=== PATIENT | male | born 1985 | race Caucasian/White ===

== ENCOUNTER 2025-06-28 02:25 | Emergency (ER) | payer MEDICAID, OTHER ==
[~2025-06-28] VITALS: Ht 175.3 cm; Wt 105.0 kg
[2025-06-28 02:28] VITALS: BP 106/90; PULSE 139; RESP 18; TEMP 98.3; O2SAT 94
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
[2025-06-28] MEDS: IBUPROFEN 600 MG TAB PO ONE (03:16)
[2025-06-28] MEDS: HYDROcodone-ACET 10/325MG TAB PO ONE (03:16)
[2025-06-28] MEDS: TETANUS-DIPTH-ACEL PERTUSSIS 0.5ML SYR Tdap IM ONE (03:18)
[2025-06-28] MEDS: LIDOCAINE 1% HCL (LOCAL ANESTH.) INJ 20ML MDV ID ONE (03:19)
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
== END 2025-06-28 03:59 | disposition home or self-care (01) ==
LOC: ER 02:25
DX: S13.4XXA Sprain of ligaments of cervical spine, initial encounter (principal); S80.211A Abrasion, right knee, initial encounter; S80.212A Abrasion, left knee, initial encounter; S09.93XA Unspecified injury of face, initial encounter; Y04.0XXA Assault by unarmed brawl or fight, initial encounter; Y93.89 Activity, other specified; Y92.89 Other specified places as the place of occurrence of the external cause; Y99.8 Other external cause status
CPT/HCPCS: 70486; 72125; 73562; 90471; 90715; 99285; J2003